=== PATIENT | male | born 1970 | race Two or more races ===

== ENCOUNTER 2018-08-11 17:24 | Emergency (ER) | payer MEDICAID ==
[~2018-08-11] VITALS: Ht 167.6 cm; Wt 89.8 kg
[2018-08-11 19:25] VITALS: BP 143/84
[2018-08-11] MEDS ORDERED: HYDROcodone-ACET 10/325MG TAB PO ONE (19:45)
[2018-08-11] MEDS ORDERED: IBUPROFEN 800 MG TAB PO ONE (19:45)
== END 2018-08-11 20:21 | disposition home or self-care (01) ==
LOC: ER 17:26
DX: S52.252A Displaced comminuted fracture of shaft of ulna, left arm, initial encounter for closed fracture (principal); X58.XXXA Exposure to other specified factors, initial encounter; Y93.89 Activity, other specified; Y92.89 Other specified places as the place of occurrence of the external cause; Y99.8 Other external cause status
CPT/HCPCS: 29125; 73030; 73090; 73110